=== PATIENT | male | born 1980 | race Caucasian/White ===

== ENCOUNTER 2017-12-21 05:55 | Inpatient (IN) | payer OTHER ==
[~2017-12-21] VITALS: Ht 182.9 cm; Wt 130.2 kg
--- NOTE | ~2017-12-21 | EKG ---
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
--- NOTE | ~2017-12-21 | HC ---
[facility] [place] [address] CONSULTATION Name: IDRISTYRONE Room #: 203-P ADM IN M.R.#: [id number] Admission: 12/21/17 Attend Phys: Ivette Palacios Discharge: Date of : 80 Report #: [id number] THIS REPORT FOR: //name// CC: Ivette Carrion ELECTROPHYSIOLOGY CONSULTATION REASON FOR CONSULTATION: SVT. HISTORY OF PRESENT ILLNESS: The patient is a 37-year-old with no known cardiac history, who over the past several months has been experiencing increasing exertional dyspnea. He reports that he would previously workout at the gym and run for a mile, but over the past several months, he has been limited in how far he can run and gets winded, shortness of breath. Over the past few weeks, his shortness of breath has worsened to the point where any activities result in dyspnea and he has also been having PND and orthopnea at nighttime. As such, he was brought here to the Emergency Room with initial an EKG showing sinus rhythm, but then he went into supraventricular tachycardia with a negative P-wave morphology in leads II, III and aVF, suggestive of either a focal atrial tachycardia versus possible accessory pathway-mediated tachycardia. He was given some beta blockers and this stopped. Apparently last week, he was at an outside hospital undergoing a stress test and at that time, he was also in an SVT with rates in the 130s to 140s. He has noted some palpitations going off and on for the past couple of months. PAST MEDICAL HISTORY: Obstructive sleep apnea. 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 FAMILY HISTORY: Significant for a sister who was diagnosed with a cardiomyopathy, who lives in [place], [place], previous drug abuse and developed cardiomyopathy. Apparently, the patient's mother has a sibling who of cardiomyopathy and there are also other family members with cardiomyopathy. ALLERGIES: INCLUDE SULFA AND IODINE. MEDICATIONS: Reviewed. REVIEW OF SYSTEMS: A 12-point review of systems was performed and was negative, other than what I mentioned above. PHYSICAL EXAMINATION: VITAL SIGNS: Temperature is 36.5, pulse 103, respirations 20, blood pressure 124/98 and sats 94%. [address] [address] CONSULTATION Name: TYRONE STEINBERG Room #: [facility] IN M.R.#: [id number] Admission: 12/21/17 Attend Phys: Ivette Palacios Discharge: Date of : 80 Report #: [id number] GENERAL: The patient is in no acute distress. HEENT: Oropharynx clear. NECK: Supple. No thyromegaly or carotid bruits. HEART: Regular rate and rhythm, with no murmurs, rubs, gallops. LUNGS: Clear to auscultation bilaterally. ABDOMEN: Soft, nontender and nondistended, with no hepatosplenomegaly. EXTREMITIES: There is no clubbing, cyanosis or edema. NEUROLOGIC: Cranial nerves 2-12 are intact. LABORATORY DATA: Hemoglobin is 14, white count 7 and platelets 271,000. Sodium 137, potassium 3.9 and creatinine 1.3. Troponin 0.4. ProBNP 1893. LDL 127. TSH 3.8. EKGs as reviewed in my note above. Echo shows his EF is down to 20%. ASSESSMENT: 1. Acute left ventricular systolic heart failure. 2. Supraventricular tachycardia. 3. Elevated troponin. PLAN: In summary, the patient is a 37-year-old presenting with new-onset left ventricular systolic heart failure. The etiology of this is unclear. I would recommend an ischemic evaluation, perhaps proceeding with diagnostic cardiac catheterization to rule out occult CAD. It seems more likely that the patient has likely been having supraventricular tachycardia that has likely triggered a tachycardia-mediated cardiomyopathy. However, there is also a potential familial cardiomyopathy that could be in play here as well. It appears that his arrhythmia is currently under control. I did discuss that if this becomes difficult to manage, then we could proceed with an early invasive ablation early next week if necessary. However, if medications seem to calm this down, then we could consider this at a future date after he has been optimized from a medical standpoint. He will follow up with Dr. Garcia while here in the hospital. By: 1353 [id number] Roni Segura MD /nt
--- NOTE | ~2017-12-21 | 2DMMODE ---
[facility] [address] [place] [address] 2 D/M-MODE ECHOCARDIOGRAM Name: IDRISTYRONE Room #: 203-P ADM IN M.R.#: [id number] Admission: 12/21/17 Attend Phys: Ivette Hernández Discharge: Date of : 80 Date of Service: 12/21/17 1134 Report #: [id number] THIS REPORT FOR: //name// APPROVED REPORT Study performed: 12/21/2017 10:23:59 EXAM: Comprehensive 2D, Doppler, and color-flow Echocardiogram Patient Location: In-Patient Room #: 203 Status: routine BSA: 2.39 HR: 103 bpm BP: 124/98 mmHg Other Information Study Quality: Adequate Indications Congestive Heart Failure Dyspnea Elevated troponin x1 2D Dimensions RVDd: 46.06 mm IVSd: 6.95 (7-11mm) LVOT Diam: 21.38 (18-24mm) LVDd: 64.63 mm PWd: 9.35 (7-11mm) Ascending Ao: 28.45 (22-36mm) LVDs: 61.97 (25-40mm) Aortic Root: 29.29 mm IVC: 26.00 mm Volumes Left Atrial Volume (Systole) Single Plane 4CH: 96.08 mL Single Plane 2CH: 81.93 mL LA ESV Index: 39.00 mL/m2 Aortic Valve AoV Peak Demario.: 0.68 m/s AO Peak Gr.: 1.84 mmHg LVOT Max P.29 mmHg LVOT Max V: 0.57 m/s ROCIO Vmax: 3.01 cm2 Mitral Valve E/A Ratio: 2.2 MV Decel. Time: 83.14 ms [facility] [address] [address] 2 D/M-MODE ECHOCARDIOGRAM Name: DARRON STEINBERGHAN Room #: 203-P [facility] IN [facility].#: [id number] Admission: 12/21/17 Attend Phys: Ivette Hernández Discharge: Date of : 80 Date of Service: 12/21/17 1134 Report #: [id number] MV E Max Demario.: 0.78 m/s MV A Demario.: 0.36 m/s MV PHT: 24.11 ms IVRT: 55.36 ms Pulmonary Valve PV Peak Demario.: 0.52 m/s PV Peak Gr.: 1.10 mmHg Tricuspid Valve TR Peak Demario.: 3.32 m/s RAP Estimate: 10.00 mmHg TR Peak Gr.: 44.17 mmHg PA Pressure: 54.00 mmHg Left Ventricle Left ventricle is dilated. There is global hypokinesis of the left ventricle. There is normal left ventricular wall thickness. Left ventricular ejection fraction is severely decreased. LVEF is 20%. Grade II - pseudonormal filling dynamics. Right Ventricle The right ventricle is normal size. The right ventricular systolic function is normal. Atria Left atrium is moderately dilated. Right atrium is at the upper limits of normal. Aortic Valve The aortic valve is normal in structure. No aortic regurgitation is present. There is no aortic valvular stenosis. Mitral Valve The mitral valve is normal in structure. Mild mitral regurgitation. No evidence of mitral valve stenosis. Tricuspid Valve The tricuspid valve is normal in structure. Mild tricuspid regurgitation. PAP is estimated at 50 mmHg. Pulmonic Valve Pulmonic valve is not well visualized. Mild pulmonic regurgitation. Great Vessels The aortic root is normal in size. IVC is dilated and collapses >50% with inspiration. [facility] [address] [place] [address] 2 D/M-MODE ECHOCARDIOGRAM Name: TYRONE STEINBERG Room #: 203-P [facility] IN .R.#: [id number] Admission: 12/21/17 Attend Phys: Ivette Hernández Discharge: Date of : 80 Date of Service: 12/21/17 1134 Report #: [id number] Pericardium There is no pericardial effusion. <Conclusion> Left ventricular ejection fraction is severely decreased. LVEF is 20%. Grade II - pseudonormal filling dynamics. Left atrium is moderately dilated. The aortic valve is normal in structure. No aortic valvular stenosis. The mitral valve is normal in structure. Mild mitral regurgitation. Mild tricuspid regurgitation. Pulmonary artery pressure estimated at 50 mmHg. There is no pericardial effusion. <ELECTRONICALLY SIGNED> By: Eran Garcia MD, FACC 12/21/17 1134 1134 1134 Eran Garcia MD, FACC /INF
--- NOTE | ~2017-12-21 | EKG ---
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1980 Requested By: Eran Garcia Order Number: [id number] MD: Eran Garcia Measurements Intervals [place] Rate: 83 P: 54 SD: 196 QRS: 71 QRSD: 96 T: 94 QT: 456 QTc: 536 Interpretive Statements Sinus rhythm Low voltage, extremity leads Prolonged QT interval Poor R wave progression Nonspecific ST and T wave abnormality Compared to ECG 12/21/2017 06:52:31 Long RP tachycardia is no longer present Electronically Signed On 12-23-2017 11:27:22 CDT by Eran Garcia [email or web address] <ELECTRONICALLY SIGNED> By: Eran Garcia MD, FACC 12/23/17 1127 0637 0637 Eran Garcia MD, [facility] /EPI
--- NOTE | ~2017-12-21 | HC ---
[facility] [place] [address] [place] [address] CONSULTATION Name: TYRONE STEINBERG Room #: 203-P [facility] IN M.R.#: [id number] Admission: 12/21/17 Attend Phys: Ivette Palacios Discharge: Date of : 80 Report #: [id number] THIS REPORT FOR: //name// CC: Ivette Danieldu Racheljana REASON FOR CONSULTATION: Shortness of breath. HISTORY OF PRESENT ILLNESS: The patient is a 37-year-old gentleman with a several month history of exertional breathlessness. He has been working out at the gym and has noticed exertional symptoms when running around in indoor track. Usually, he had been able to do this without any limitation. Over the past couple of days, he has had shortness of breath particularly at night, awakening him from sleep. He has had abdominal bloating. He denies chest heaviness or pressure. He had a stress echo performed at [facility] last week. He was told it was abnormal, does not know the details and arrangements were made for him to see a furniture repair technician next week. Due to his breathlessness, he presented to the Emergency Department. Upon presentation, he was in sinus rhythm, although subsequently developed an ectopic atrial tachycardia at 140 beats per minute. He had no symptoms with this tachycardia. He does note on occasion at night he will feel his heart race. No history of near syncope or syncope. ALLERGIES: He is allergic to IODINE and SULFA. MEDICATIONS: He takes no medicines on a regular basis. PAST MEDICAL HISTORY: His past history and medical records have been reviewed and include a history of sleep apnea. No prior hospitalizations or surgeries. SOCIAL HISTORY: He is a former smoker. 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 FAMILY HISTORY: Sister has cardiomyopathy and either a pacemaker or defibrillator. He is not sure which. His mother's side of the family has a history of "heart disease." REVIEW OF SYSTEMS: All systems negative except as that noted above. PHYSICAL EXAMINATION: GENERAL: He is a pleasant gentleman who is mildly dyspneic. VITAL SIGNS: Blood pressure is 123/69, heart rate of 130 and regular. He is afebrile with 6 feet tall and 290 pounds. HEENT: There are neither xanthelasma, subcutaneous xanthomata, oral mucosal or digital cyanosis or kyphoscoliosis present. CHEST: Clear to auscultation and percussion. CARDIAC: Tachycardic. Regular rate and rhythm with normal S1 and S2. Jugular venous pressure is elevated. ABDOMEN: Soft and nontender. [facility] [address] [place] [address] CONSULTATION Name: TYRONE STEINBERG Room #: 203-[facility] IN .R.#: [id number] Admission: 12/21/17 Attend Phys: Ivette Palacios Discharge: Date of : 80 Report #: [id number] EXTREMITIES: Without pedal edema. Radial pulses are 2+. NEUROLOGICAL: He is alert with a nonfocal exam. LABORATORY DATA: Sodium 137, potassium 3.9 and creatinine 1.3. Troponin 0.43. Pro-BNP of 1893. White count 9.3, hemoglobin 14, hematocrit 43 and platelet count 271. Thyroid function studies remain pending. RADIOLOGICAL DATA: Chest x-ray demonstrates congestive heart failure. IMPRESSION: 1. Congestive heart failure. 2. Ectopic atrial tachycardia. 3. Elevated troponin, probable type 2 myocardial infarction in the setting of heart failure and tachycardia. 4. Sleep apnea, on continuous positive airway pressure. 5. Family history of cardiomyopathy. RECOMMENDATIONS: 1. Obtain records from [facility]. 2. IV Lasix, BEATRICE inhibitor and low dose beta blockade. 3. Echocardiogram with Doppler. Further thoughts and plans will be forthcoming based on this evaluation. Thank you for asking me to participate in his care. <ELECTRONICALLY SIGNED> By: Eran Garcia MD, FACC 12/22/17 0956 0754 [id number] Eran Garcia MD, FACC /nt
--- NOTE | ~2017-12-21 | EKG ---
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
[2017-12-21 06:02] VITALS: BP 134/109
[2017-12-21] MEDS ORDERED: ASPIR 8181 MG PO (06:10)
[2017-12-21 06:38] LABS: ABSOLUTE NEUTROPHILS 4.1 thou/uL (1.4-8.2); BASOPHILS 0.4 % (0.0-2.0); EOSINOPHILS 1.5 % (0.0-3.0); HEMATOCRIT 43.6 % (42.0-52.0); HEMOGLOBIN 14.9 gm/dL (14.0-18.0); LYMPHOCYTES 36.1 % (24.0-44.0); MCH 28.7 pg (26.0-34.0); MCHC 34.1 g/dL (28.0-37.0); MCV 84.1 fL (80.0-100.0); MONOCYTES 6.2 % (1.0-8.0); PLATELET COUNT 271 thou/uL (150-400); POLYS 55.8 % (36.0-66.0); RBC 5.18 mil/uL (4.50-6.00); RDW 13.6 % (10.5-14.5); WBC 7.3 thou/uL (4.0-11.0)
[2017-12-21 06:48] LABS: CALCIUM 9.5 mg/dL (8.5-10.1); CREATININE 1.3 mg/dL (0.7-1.3); POTASSIUM 3.9 mmol/L (3.5-5.1)
[2017-12-21 06:56] LABS: TROPONIN-I 0.43 ng/mL (<0.06)
[2017-12-21 07:49] VITALS: BP 123/69
[2017-12-21 07:53] VITALS: BP 124/98; BP 125/89
[2017-12-21 09:39] LABS: CHOLESTEROL 188 mg/dL (<200); HDL CHOLESTEROL 41 mg/dL (>40); LDL CHOLESTEROL 127 mg/dL (<100); TC:HDL 4.6 Ratio (Not establshd); TRIGLYCERIDE 102 mg/dL (<150); VLDL 20 mg/dL (<40)
[2017-12-21 11:18] VITALS: BP 10/74
[2017-12-21 15:23] VITALS: BP 108/57
[2017-12-21 19:51] VITALS: BP 102/65
[2017-12-22 00:20] VITALS: BP 94/55
[2017-12-22 05:40] VITALS: BP 101/69
[2017-12-22 07:54] VITALS: BP 101/69
[2017-12-22] MEDS ORDERED: DEMADEX20 MG PO (07:57)
[2017-12-22] MEDS ORDERED: SPIRONOLACTONE25 M1 PO (07:57)
[2017-12-22] MEDS ORDERED: LISINOPRIL10 MG PO (07:57)
[2017-12-22] MEDS ORDERED: COREG6.25 MG PO (07:57)
[2017-12-22 14:51] VITALS: BP 94/63
[2017-12-22 17:06] VITALS: BP 94/63
== END 2017-12-22 17:55 | disposition home or self-care (01) | DRG 280 ==
LOC: ER 05:55 → 2N 07:30 → EROBS 07:30 → 2N 08:16
PROVIDERS: Emergency Medicine; Hospitalist
DX: I21.4 Non-ST elevation (NSTEMI) myocardial infarction (principal); I50.23 Acute on chronic systolic (congestive) heart failure; I47.1 Supraventricular tachycardia; I42.9 Cardiomyopathy, unspecified; G47.33 Obstructive sleep apnea (adult) (pediatric); Z88.6 Allergy status to analgesic agent; Z91.041 Radiographic dye allergy status; Z87.891 Personal history of nicotine dependence; Z82.49 Family history of ischemic heart disease and other diseases of the circulatory system; Z79.899 Other long term (current) drug therapy
CPT/HCPCS: 10081